=== PATIENT | male | born 1940 | race Asian ===

== ENCOUNTER → 2017-08-12 | Outpatient (CLI) | payer OTHER ==
--- NOTE | 2017-08-12 10:18 | DIAGNOSTIC IMAGING REPORT ---
CHEST 2 VIEWS ROUTINE HISTORY: Z11.1 TB RECHECK COMPARISON: None. FINDINGS: Mild biapical pleural thickening and a few linear scarlike densities. The lungs are otherwise clear. No pleural effusions. No pneumothorax. The heart is normal in size. IMPRESSION: No acute process. Electronically signed by: Ok Lamar M.D. 08/12/2017 10:17 AM Dictated Date/Time: 08/12/2017 10:16 AM
[2017-08-14 16:37] LABS: QUANTIF TB AG-NIL 0.23 IU/ML; QUANTIFERON NIL 0.12 IU/ML
== END | disposition home or self-care (01) ==
LOC: C.RAD 08:40
PROVIDERS: ATTEND Internal Medicine Infectious Disease
DX: Z11.1 Encounter for screening for respiratory tuberculosis (principal)